=== PATIENT | female | born 1960 | race American Indian/Alaskan Native ===

== ENCOUNTER 2017-04-29 21:52 | Emergency (ER) | payer BC, OTHER ==
[~2017-04-29] VITALS: Ht 165.1 cm; Wt 101.3 kg
[~2017-04-29 21:52] MED LIST: ASMANEX220 MCG INH; ASPIR 8181 MG PO; ASPIR-LOW81 MG PO; ASPIRIN EC81 MG PO; BACTRIM DS TAB1 EACH PO; BENZONATATE100 MG PO; CALCIUM600 MG PO; COMBIVENT RESPIM4 GM IH; COZAAR50 MG PO; CRESTOR20 MG PO; D3 DOTS2000 UNIT PO; DULERA 100 MCG/13 GM INH; FLUCONAZOLE150 MG PO; HYDROCHLOROTHIA25 MG PO; LANTUS SOL100 UNIT/1 SUB-Q; LORATADINE10 MG PO; MACROBID 100 M100 MG PO; METFORMIN HCL1000 MG PO; MONTELUKAST SOD10 MG PO; NITROFURANTOIN100 M1 PO; NORCO 5-325 TA1 EACH PO
[2017-04-29] MEDS ORDERED: NORCO 5-325 TA1 EACH PO (22:45)
[2017-04-29] MEDS ORDERED: BACTRIM DS TAB1 EACH PO (22:45)
[2017-04-29] MEDS ORDERED: CEPHALEXIN500 MG PO (22:45)
== END 2017-04-29 23:07 | disposition home or self-care (01) ==
LOC: ED 21:52
PROC: 0W9F0ZZ Drainage of Abdominal Wall, Open Approach (ICD-10-PCS; principal; 2017-04-29)
DX: L02.211 Cutaneous abscess of abdominal wall (principal); E11.9 Type 2 diabetes mellitus without complications; I10 Essential (primary) hypertension; J45.909 Unspecified asthma, uncomplicated; F17.200 Nicotine dependence, unspecified, uncomplicated; Z79.899 Other long term (current) drug therapy; Z79.4 Long term (current) use of insulin; Z79.82 Long term (current) use of aspirin
CPT/HCPCS: 10060; 81001; 87070; 87077; 87088; 87186; 99283

== ENCOUNTER 2017-07-02 04:00 | Emergency (ER) | payer BC, OTHER ==
[~2017-07-02] VITALS: Ht 165.1 cm; Wt 87.3 kg
[~2017-07-02 04:00] MED LIST changes: +CEPHALEXIN500 MG PO
== END 2017-07-02 05:51 | disposition home or self-care (01) ==
LOC: ED 04:00
DX: R56.9 Unspecified convulsions (principal); E11.9 Type 2 diabetes mellitus without complications; J45.909 Unspecified asthma, uncomplicated; I10 Essential (primary) hypertension; F17.200 Nicotine dependence, unspecified, uncomplicated; Z79.899 Other long term (current) drug therapy; Z79.82 Long term (current) use of aspirin; Z79.4 Long term (current) use of insulin
CPT/HCPCS: 80053; 85025; 99283; G0480; J7030

== ENCOUNTER 2017-08-10 16:43 | Inpatient (IN) | payer BC, OTHER ==
[~2017-08-10] VITALS: Ht 165.1 cm; Wt 89.4 kg
[2017-08-10] MEDS ORDERED: ZITHROMAX250 MG PO (17:17)
[2017-08-10] MEDS ORDERED: BENZONATATE100 MG PO (17:29)
--- NOTE | 2017-08-10 21:50 | NUR ---
PT ADMITTED TO CCU ROOM 128 AT 2140. PT ARRIVED WITH STRETCHER WITH THE ADOPTION MANAGER. PT AT BEDSIDE. PT ABLE TO TRANSFER FROM STRECHER TO BED ON HER OWN. PT STATES "I FEEL MISERABLE" WHEN ASKED HOW SHE IS DOING. PT ARRIVED ON INSULIN GTT. WILL MONITOR HOURLY. MD IS PRESENT AT THIS TIME. WILL CONTINUE TO CLOSELY MONITOR.
--- NOTE | 2017-08-10 22:20 | NUR ---
PER MD VELAZQUEZ START PT ON LEVOPHED AND FOLLOW ORDER PARAMETERS FOR BP MANAGEMENT. PT DENIES DIZZINESS, BUT DOES NOT FEEL WELL IN GENERAL. STAETED GTT WILL TITRATE TO MAINTAIN MAP 60-65.
--- NOTE | 2017-08-10 22:50 | NUR ---
LEVOPHED GTT INCREASED TO 8MCG/MIN PER ORDER. WILL CONTINUE TO CLOSELY MONITOR AT THIS TIME.
--- NOTE | 2017-08-10 23:30 | NUR ---
PT RESTING IN BED WITH AT BEDSIDE. PT ADMITTED INTO COMPUTER AND ALL ORDERS FINISHED. YAO PLACED WITH 350MLS OF URINE RETURNED. WILL MONITOR HOURLY. ANTIBIOTICS GIVE, FLUIDS RUNNING PER ORDER. LEVOPHED TITRATED NEEDED PER ORDER TO MAINTAIN MAP 60-65. PT HAS CALL LIGHT AND CALLS APPROPRIATELY. WILL CONTINUE TO CLOSELY MONITOR.
--- NOTE | 2017-08-11 | NUR ---
MD CALLED WITH LAB RESULTS AND CHANGED PT ORDERS. PER MD FOLLOW NEW ORDERS PLACED. GIVE SUB Q INSULIN AND STOP INSULIN GTT. WILL GIVE POTASSIUM REPLACEMENT ORDERED. PT IS AGREEABLE TO PLAN. INCREASED LEVOPHED GTT TO 10 MCG/MIN PER ORDER. WILL CONTINUE TO CLOSELY MONITOR AT THIS TIME.
--- NOTE | 2017-08-11 00:15 | NUR ---
CHANGED LEVOPHED GTT TO 14MCG/MIN PER ORDERS TO MAINTAIN MAP >65. WILL CONTINUE TO CLOSELY MONITOR.
--- NOTE | 2017-08-11 01:00 | NUR ---
CHANGED LEVOPHED GTT TO 18MCG/MIN PER ORDERS. WILL CONTINUE TO CLOSELY MONITOR. PT DENIES ANY OTHER NEEDS AT THIS TIME. ICE CHIPS AT BEDSIDE. UPDATED PT ON CURRENT PLAN OF CARE. CALL LIGHT IN HAND. PT DAUGHTER AT BEDSIDE.
--- NOTE | 2017-08-11 02:15 | NUR ---
PT BS 330 GAVE 10 UNITS SUB-Q PER ORDER. LEVOPHED GTT REMAINS AT 18MCG/MIN PER ORDER PARAMETER. PT REQUESTED NEBULIZER. PT HAS EXP WHEEZE. PT COMPLAINING OF BACK DISCOMFORT WITH THE BED. REPOSITIONED PT AND GAVE PRN TYLENOL. WILL CONTINUE TO CLOSELY MONITOR. URINE OUTPUT REMAINS ABOVE GOAL AT THIS TIME. CALL LIGHT IN REACH. WILL CONTINUE TO CLOSELY MONITOR.
--- NOTE | 2017-08-11 03:45 | NUR ---
PT LEVOPHED GTT TURNED DOWN TO 14MCG/MIN PER TITRATION ORDERS. WILL CONTINUE TO CLOSELY MONITOR PATIENTS VITALS. URINARY OUTPUT IS ABOVE GOALS. PT DENIES ANY NEEDS AT THIS TIME. WILL CONTINUE TO ENCOURAGE REST AT THIS TIME.
--- NOTE | 2017-08-11 04:30 | NUR ---
PT LEVOPHED GTT TURNED DOWN TO 10MCG/MIN PER ORDERS. WILL CONTINUE TO MONITOR VITALS AND TITRATE THE ORDER SPECIFIES.
--- NOTE | 2017-08-11 06:00 | NUR ---
LEVOPHED GTT TURNED DOWN TO 8MCG/MIN AT THIS TIME PER ORDERS. WILL CONTINUE TO TRY AND TITRATE GTT. WILL CONTINUE TO CLOSELY MONITOR.
--- NOTE | 2017-08-11 06:57 | NUR ---
LABS TAKEN FROM CENTRAL LINE WITH NO ISSUES. CHANGED ALL HUBS AT THIS TIME. PT STATES "I STILL DONT FEEL THE BEST". GAVE PT MENU AT BEDSIDE. PT COMPLAINING OF BACK ACHE, PT STATES SHE SHE HAS CHRONIC BACK PAIN AT HOME. GAVE PRN TYLENOL. WILL CONTINUE TO CLOSELY MONITOR.
--- NOTE | 2017-08-11 08:10 | NUR ---
PT AWAKE AND ORIENTED, VITAL SIGNS COMPLETED. PT SITTING ON EDGE OF BED EATING BREAKFAST. PT ATE APPROX 20% OF BREAKFAST. ASSESSMENT COMPLETED, STATES BACK DISCOMFORT "10/03". PT NOW RESTING ON RIGHT SIDE WITH REU. LEVOPHED GTT DECREASED TO 7 MCG/MIN. BP 104/66 (76).
--- NOTE | 2017-08-11 09:28 | NUR ---
DR. VELAZQUEZ IN TO TALK WITH PT AND FAMILY MEMBER CONCERNING PLAN OF CARE FOR TODAY.
--- NOTE | 2017-08-11 10:08 | NUR ---
PT RESTING WITH EYES CLOSED, AWAKENS TO VOICE, STATES PAIN "2/10".
--- NOTE | 2017-08-11 10:42 | CONS ---
[facility] [address] [place] [address] Signed DATE OF CONSULTATION: 08/10/2017 HISTORY OF PRESENT ILLNESS: A 57-year-old heavyset female, diabetic, admitted to the emergency department with temperature 101.6, hypotension with blood pressure 91/33 and a white count of 18.3. Urinalysis showing evidence of urinary tract infection with numerous white blood cells, as well as RBC. She complains of vague abdominal pain, bowel sounds present, soft. No definite area of tenderness, no rebound. I was consulted for placement of a central line for fluid management as well as antibiotic IV infusion. ASSESSMENT AND PLAN: At the present time, I do not believe the patient has any surgical issue, abdominal chandler and I agree with imaging study in the form of CAT scan. The sonography study done earlier revealed no evidence of cholelithiasis, no evidence of any pericholecystic fluid suggestive of cholecystitis. I believe the patient has urosepsis and we will proceed with placement of central line via the right subclavian vein. The indication, risks involved, possible complication was discussed with the patient and the , who agreed with the plan. Margaux Arthur MD FSA/FLYL /[id number] Copies: ~ Electronically Signed By: MARGAUX ARTHUR MD 08/11/17 1042 PATIENT NAME: THERESA RICHEY CONSULTATION DATE OF : 62 REPORT #: [id number] PHYSICIAN: MARGAUX ARTHUR MD PCP: TONYA BLISS REPORT IS CONFIDENTIAL AND NOT TO BE RELEASED WITHOUT AUTHORIZATION
--- NOTE | 2017-08-11 10:42 | OR ---
[facility] [address] [address] Signed DATE OF OPERATION: 08/10/2017 SURGEON: Margaux Arthur MD PREOPERATIVE DIAGNOSIS: Septicemia secondary to urinary tract infection. PROCEDURE PERFORMED: Placement of a central line via the right subclavian vein. ANESTHESIA: 1% lidocaine. DESCRIPTION OF PROCEDURE: With the patient in Trendelenburg position with neck tilted to the left side, the right side of the chest, infraclavicular, supraclavicular, and right side of neck were prepped and draped in usual sterile fashion. Using 1% lidocaine, the skin below the midclavicular area was infiltrated as well as the subclavicular area. Using a central line needle, the subclavian vein was percutaneously punctured followed by insertion of guide wire, introducer, and a triple-lumen subclavian catheter. All the lumens flushed with normal saline easily with good return backflow. This was then anchored under skin using 3-0 silk. BioDisc was applied at the point of entry. Sterile dressing applied. The patient tolerated the procedure well.Portable chest x-ray revealed a catheter in the upper portion of the right atrium. Thi is a satisfactory placement. Margaux Arthur MD FSA/MODL /[id number] Copies: Electronically Signed By: MARGAUX ARTHUR MD 08/11/17 1042 PATIENT NAME: THERESA RICHEY OPERATIVE REPORT DATE OF : 62 REPORT #: [id number] PHYSICIAN: MARGAUX ARTHUR MD PCP: TONYA BLISS REPORT IS CONFIDENTIAL AND NOT TO BE RELEASED WITHOUT AUTHORIZATION [facility] [address] [place] [id number] Signed ~ Electronically Signed By: MARGAUX ARTHUR MD 08/11/17 1042 PATIENT NAME: THERESA RICHEY OPERATIVE REPORT DATE OF : 62 REPORT #: [id number] PHYSICIAN: MARGAUX ARTHUR MD PCP: TONYA BLISS REPORT IS CONFIDENTIAL AND NOT TO BE RELEASED WITHOUT AUTHORIZATION
[2017-08-11] MEDS ORDERED: VENTOLIN HFA18 GM INH (13:01)
[2017-08-11] MEDS ORDERED: MONTELUKAST SOD10 MG PO (13:02)
[2017-08-11] MEDS ORDERED: LOSARTAN POTAS100 MG PO (13:03)
[2017-08-11] MEDS ORDERED: FLONASE ALLERG9.9 ML NAS (13:08)
[2017-08-11] MEDS ORDERED: OMEPRAZOLE20 MG PO (13:10)
[2017-08-11] MEDS ORDERED: CLARITIN10 MG PO (13:11)
--- NOTE | 2017-08-11 13:40 | NUR ---
PT HAS LOTS OF ACTIVITY, VISITORS JUST LEFT. I SIMPLY LET HER KNOW I WAS HERE, AND WOULD FOLLOW UP LATER. SHE SEEMED TO APPRECIATE. I WILL CONTINUE TO FOLLOW NEEDED
--- NOTE | 2017-08-11 14:30 | NUR ---
PT SLEEPING ON RIGHT SIDE, REU. 02 AT 2L PER NC SATS 99%. I/O COMPLETED.
--- NOTE | 2017-08-11 19:00 | NUR ---
RECEIVED REPORT FROM RN. PATIENT IS RESTING IN BED WITH EYES CLOSED, BREATHING IS EVEN AND UNLABORED. CALL LIGHT WITHIN REACH, AT BEDSIDE.
--- NOTE | 2017-08-11 19:35 | EKG ---
[facility] [address] [facility] [place], [place] [address] Signed Sinus tachycardia Right axis deviation Abnormal ECG No previous ECGs available Confirmed by PRESTON VELAZQUEZ MD ([id number]) on 08/11/2017 7:35:33 PM Electronically Signed By: PRESTON VELAZQUEZ MD 08/11/17 [id number] PATIENT NAME: THERESA RICHEY Electrocardiogram DATE OF : 62 PHYSICIAN: PRESTON VELAZQUEZ MD REPORT #: [id number] REPORT IS CONFIDENTIAL AND NOT TO BE RELEASED WITHOUT AUTHORIZATION
--- NOTE | 2017-08-11 19:45 | NUR ---
TITRATED LEVOPHED GTT TO 2MCG/MIN PER ORDER AT THIS TIME. WILL CONTINUE TO TITRATE OFF GTT PT VITALS CAN TOLERATE IT.
--- NOTE | 2017-08-11 21:00 | NUR ---
PATIENT RESTING IN BED, BREATHING IS EVEN AND UNLABORED. ASSESSMENT DONE AND MEDICATIONS GIVEN. PATIENT STATES "I AM JUST FEELING TIRED AND WANT TO GET SOME SLEEP." CALL LIGHT WITHIN REACH, AT BEDSIDE.
--- NOTE | 2017-08-11 21:20 | NUR ---
LEVOPHED GTT PUT ON STANDBY WITH BP OF 125/67, MAP OF 78, HEART RATE 94. PATIENT IS RESTING COMFORTABLY IN BED, BREATHING IS EVEN AND UNLABORED. O2 SATURATION IS 98% ON 1L O2 VIA NC. CALL LIGHT WITHIN REACH, FAMILY AT BEDSIDE.
--- NOTE | 2017-08-11 21:30 | NUR ---
TITRATED O2 TO ROOM AIR, O2 SATURATION IS 92%. PATIENT REPORTS 9/10 PAIN IN HEAD AND LOWER BACK, PRN OXYCODONE GIVEN. PATIENT DENIES FUTHER NEEDS. RESTING COMFOTABLY IN BED, BREATHING IS EVEN AND UNLABORED. CALL LIGHT WITHIN REACH, AT BEDSIDE.
--- NOTE | 2017-08-11 23:09 | NUR ---
PATIENT RESTING COMFORTABLY IN BED, BREATHING IS EVEN AND UNLABORED. O2 SATURATION IS 93% ON ROOM AIR. BP OF 102/53 WITH MAP OF 65 NOTED WHILE PATIENT CURRRENTLY OFF LEVOPHED GTT. YAO DRAINING WELL, URINE OUTPUT QS. CALL LIGHT WITHIN REACH.
--- NOTE | 2017-08-12 01:17 | NUR ---
PATIENT RESTING COMFORTABLY IN BED, BREATHING IS EVEN AND UNLABORED, O2 SATURATION IS 93% ON ROOM AIR. FLACC SCORE OF 0. CALL LIGHT WITHIN REACH.
--- NOTE | 2017-08-12 02:15 | NUR ---
PATIENT REPORTS 8/10 PAIN IN LOWER BACK, PRN OXYCODONE GIVEN. PATIENT DENIES FURTHER NEEDS. ASSESSMENT DONE. BREATHING IS EVEN AND UNLABORED. CALL LIGHT WITHTIN REACH.
--- NOTE | 2017-08-12 03:26 | NUR ---
PATIENT RESTING COMFORTABLY IN BED, BREATHING IS EVEN AND UNLABORED. O2 SATURATION IS 94% ON 1L O2 VIA NC. FLACC SCORE OF 0. CALL LIGHT WITHIN REACH.
--- NOTE | 2017-08-12 04:30 | NUR ---
PATIENT RESTING IN BED, BREATHING IS EVEN AND UNLABORED. O2 SATURATION IS 96% ON 1L O2 VIA NC, FLACC SCORE OF 0. CALL LIGHT WITHIN REACH.
--- NOTE | 2017-08-12 06:00 | NUR ---
PATIENT RESTING IN BED, BREATHING IS EVEN AND UNLABORED. O2 SATURATION IS 94% ON 1L O2 VIA NC. REPORTS 8/10 PAIN IN LOWER BACK, PRN OXYCODONE GIVEN. PATIENT DENIES FURTHER NEEDS. ASSESSMENT DONE. PATIENT STATES "I AM STARTING TO FEEL BETTER." CALL LIGHT WITHIN REACH.
--- NOTE | 2017-08-12 08:20 | NUR ---
ASSESSMENT COMPLETED, PT UP TO MANDO CHAIR WITH MINIMAL ASSIST. 02 OFF AND SATS 91% ON RA. C/O OF HEADACHE WHEN COUGHING. R.T. HERE TO GIVE MAGNOLIA TX.
--- NOTE | 2017-08-12 10:45 | NUR ---
PT ATE APPROX 10% OF BREAKFAST. DR. VELAZQUEZ IN TO ASSESS PT. FAMILY MEMBERS IN ROOM.
--- NOTE | 2017-08-12 12:13 | NUR ---
ASSESSMENT COMPLETED. PT REMAINS UP IN MANDO CHAIR, RESTING AT THIS TIME. C/O HEADACHE, MEDICATED WITH OXYCODONE 5MG PO AND FLONASE GIVEN.
--- NOTE | 2017-08-12 12:50 | NUR ---
PT SITTING UP IN CHAIR-ALERT, ORIENTED AND VISITORS IN ROOM. SHE WAS SO MUCH MORE ALERT AND FEELING WELL ENOUGH TO LAUGH AND JOKE TODAY. EXTENDED A BLESSING, WILL FOLLOW NEEDED
--- NOTE | 2017-08-12 14:30 | NUR ---
PT RESTING IN BED, YAO CATH DC'C AND EMPTIED OF 625 MLS ORANGE URINE. PT C/O HEADACHE SUDAFED 60MG PO GIVEN.
--- NOTE | 2017-08-12 14:46 | NUR ---
PT SLEEPING AT THIS TIME WITH REU AT 18 PER MIN.
--- NOTE | 2017-08-12 18:13 | NUR ---
PT UP TO BSC VOIDING 625 MLS DARK ORANGE URINE. RETURNED TO BED, ASSESSMENT COMPLETED, PT C/O HEADACHE "10/03", MEDICATED WITH OXYCODONE 5MG PO. RESTING IN BED EATING DINNER.
--- NOTE | 2017-08-12 18:29 | NUR ---
PT ATE APPROX 10% OF DINNER. RESTING IN BED WITH EYES CLOSED.
--- NOTE | 2017-08-12 20:51 | NUR ---
PATIENT RESTING IN BED, BREATHING IS EVEN AND UNLABORED. O2 SATURATION IS 95% ON ROOM AIR, HR IS 100. REPORS 8/10 PAIN IN HEAD AND STATES "IT IS RIGHT IN THE FRONT OF MY HEAD, LIKE A SINUS HEADACHE." PRN TYLENOL AND PSEUDOPHED GIVEN. DENIES FURTHER NEEDS. ASSESSMENT DONE. CALL LIGHT WITHIN REACH, AT BEDSIDE.
--- NOTE | 2017-08-12 22:15 | NUR ---
PATIENT RESTING IN BED, BREATHING IS EVEN AND UNLABORED. CONTINUES TO REPORTS 8/10 PAIN IN HEAD DUE TO SINUS PAIN, PRN OXYCODONE GIVEN. PATIENT ASSISTED TO BEDSIDE COMODE, GAIT STEADY, SBA. NOW RESTING IN BED AGAIN. DENIES FURTHE NEEDS. CALL LIGHT WITHIN REACH.
--- NOTE | 2017-08-13 00:30 | NUR ---
PATIENT RESTING COMFORTABLY IN BED, BREATHING IS EVEN AND UNLABORED. FLACC SCORE OF 0. CALL LIGHT WITHIN REACH.
--- NOTE | 2017-08-13 02:00 | NUR ---
PATIENT REPORTS 8/10 PAIN, PRN TYLENOL, OXYCODONE, AND PSEUDOPHED GIVEN. PATIENT DENIES FURTHER NEEDS. CALL LIGHT WITHIN REACH.
--- NOTE | 2017-08-13 04:00 | NUR ---
PATIENT RESTING IN BED, BREATHING IS EVEN AND UNLABORED. CALL LIGHT WITHIN REACH.
--- NOTE | 2017-08-13 06:22 | NUR ---
MIDLINE INSERTION NOTE: ASKED BY DR. VELAZQUEZ TO EVALUATE PATIENT FOR POTENTIAL MIDLINE PLACEMENT FOR 2 WEEKS OF IV ANTIBIOTICS INDICATION. PT HAS A CENTRAL LINE IN RIGHT SUBCLAVIAN THAT IS DUE TO BE D/C ONCE MIDLINE IS ESTABLISHED. AFTER REVIEWING THE CHART AND INTERVIEWING THE PATIENT, NO ABSOLUTE CONTRAINDICATIONS WERE IDENTIFIED. PATIENT WAS ABLE TO GIVE VERBAL CONSENT FOR MIDLINE INSERTION. PATIENT'S RIGHT ARM WAS EVALUTED FIRST USING THE SITE RITE U/S MACHINE. PT'S BASILIC VEIN WAS EASILY IDENTIFIED AND FOUND TO BE GREATER THAN 8 FR BY SITE RITE U/S. PT'S BRACHIAL AND CEPHALIC WERE ALSO IDENTIFIED, BUT THE BASILIC WAS THE BEST CHOICE. CDC RECOMMENDED STERILE TECHNIQUE WAS THEN UTILIZED TO PREP THE PATIENT'S RIGHT ARM. IV ACCESS WAS OBTAINED AND BRISK, NON PULSATILE, DARK BLOOD WAS RETURNED. THE GUIDEWIRE ADVANCED EASILY INTO THE VEIN, DID THE INTRODUCER AND MIDLINE CATHETER. CATHETER WAS TRIMMED TO 18 CM LENGTH AFTER MEASURING PT'S ARM. ANTIMICROBIAL PATCH AND SECURMENT DEVICE WERE APPLIED TO SITE AND STERILE DRESSING WAS PLACED. PATIENT TOLERATED THIS PROCEDURE VERY WELL. PT EDUCATED ON NECESSARY EDUCATION ABOUT GOING HOME WITH THIS MIDLINE POTENTIALLY, AND ENCOURAGED TO KEEP ASKING QUESTIONS REGARDING THIS MIDLINE CATHETER. EDUCATION MATERIAL LEFT AT BEDSIDE. REPORT GIVEN TO EMMA YEE CARING FOR THIS PATIENT.
--- NOTE | 2017-08-13 07:01 | NUR ---
PATIENT RESTING IN BED, BREATHING IS EVEN AND UNLABORED. REPORTS 7/10 PAIN IN HEAD, PN TYLENOL AND OXYCODONE GIVEN. ASSISTED TO BEDSIDE COMODE. NOW RESTING IN BED. NO NEEDS AT THIS TIME. CALL LIGHT WITHIN REACH.
--- NOTE | 2017-08-13 07:30 | NUR ---
BEDSIDE REPORT RECIEVED.
--- NOTE | 2017-08-13 08:00 | NUR ---
RESTFUL, ACCUCHECK-155. DR VELAZQUEZ AWARE. ASSESSMENT DONE. HAS LOOSE COUGH. STATES HEAD HURTS WHEN COUGHING. DENEIS FUTHER PAIN. TALKED WITH PATIENT ABOUT PLAN OF CARE, IS UNDERSTANDING.
--- NOTE | 2017-08-13 08:40 | NUR ---
ROUTINE LANTUS 70 UNITS GIVEN WELL 2 UNITS HUMALOG.
--- NOTE | 2017-08-13 09:40 | NUR ---
RESTFUL. MONITOR DC'D. WILL BE TRANSFERRED TO MEDICAL FLOOR TODAY.
--- NOTE | 2017-08-13 10:35 | NUR ---
TO SHOWER VIA SHOWER CHAIR.
--- NOTE | 2017-08-13 10:45 | NUR ---
TOLERATED SHOWER WELL. AMBULATED FROM SHOWER TO ROOM 128, TOLERATED AMBULATION WELL. NOW SITTING IN CHAIR.
--- NOTE | 2017-08-13 11:30 | NUR ---
OXYCODONE 5 MG AND TYLENOL 500 MG PO GIVEN.
--- NOTE | 2017-08-13 11:50 | NUR ---
BACK TO BED. MOVING WELL.
--- NOTE | 2017-08-13 13:34 | NUR ---
REPORT TO MED-SURG. PATIENT SITTING UP IN BED TO EAT LUNCH.
--- NOTE | 2017-08-13 14:00 | NUR ---
TO MED-SURG VIA BED.
--- NOTE | 2017-08-13 14:07 | NUR ---
PT TRANSFERRED FROM ROOM 128 ON CCU UNIT TO ROOM 123 ON MED SURG UNIT AT 1400. ROOM AIR. VSS. SALINE LOCKED.
--- NOTE | 2017-08-13 14:30 | NUR ---
PT RESTING IN BED, ALERT AND ORIENTED. DENIES NEEDS OR CONCERNS AT THIS TIME, REQUESTING TO REST AT THIS TIME. ASSESSMENT COMPLETED. CALL BUTTON WITHIN REACH.
--- NOTE | 2017-08-13 14:36 | NUR ---
PT ALERT, ORIENTED AND FEELING MUCH BETTER. SHE DID SAY THAT SHE IS PLANNING ON MOVING TO [place]. ONE STEP CLOSER TO DC. SHE HAD A BIG SMILE, AND HAD A PLEASANT VISIT. EXTENDED A BLESSING, WILL FOLLOW NEEDED
--- NOTE | 2017-08-13 15:05 | NUR ---
patient resting in bed. case management in room.
--- NOTE | 2017-08-13 16:20 | NUR ---
PT REPORTING 7/10 HEADACHE PAIN, MEDICATED WITH SUDAFED AND PRN OXY.
--- NOTE | 2017-08-13 17:41 | NUR ---
PT SBA TO RESTROOM, VOIDED WITHOUT DIFFICULTY. PT AMB BACK TO BED. STATES SHE IS NOT HUNGRY RIGHT NOW AND WILL WAIT TO ORDER DINNER. CALL LIGHT WITHIN REACH, FAMILY AT BEDSIDE.
--- NOTE | 2017-08-13 18:41 | NUR ---
PT IN BED WITH EYES CLOSED, CONT TO C/O OF HEADACHE PAIN. MEDICATED WITH TYLENOL. CALL LIGHT WITHIN REACH.
--- NOTE | 2017-08-13 19:43 | NUR ---
patient resting in bed. family members in room. vitals and i&os done. garbage emptied. call light within reach. no other needs at this time.
--- NOTE | 2017-08-13 19:56 | NUR ---
URSULA HARDEN REPORT FROM DAY SHIFT RN. PATIENT IS RESTING IN BED WITH EYES CLOSED. FAMILY IS AT THE BEDSIDE. NO NEEDS NOTED BY FAMILY. CALL LIGHT IN REACH.
--- NOTE | 2017-08-13 21:05 | NUR ---
PATIENT ASSESMENT COMPLETED. PATIENTS EVENING MEDICATIONS GIVEN PER ORDER. PATIENT RATES PAIN AT A 7/10 IN HER SINUSES. PATIENT GIVEN PRN PAIN MEDICAITON PER ORDER. PATIENT COMPLETED X3 LAPS IN THE HALLWAY. PATIENT TOLERATED AMBULATION WELL. PATIENT IS STEADY ON HER FEET. PATIENT HAS FAMILY OIN TH ROOM. PATIENTS BLOOD SUGAR WAS WNL, NO SS REQUIRED. NO FURTHER NEEDS NOTED. CALL LIGHT IN REACH.
--- NOTE | 2017-08-13 22:10 | NUR ---
PATIENT GIVEN PRN TYLENOL AND PSEUDOPHER FOR SINUS HEADACHE THAT IS 7/10. NO FURTHER NEEDS NOTED AT THIS TIME. PATIENTS LIGHTS TURNED OFF PER REQUEST. ALL FAMILY HAS LEFT FOR THE EVENING. CALL LIGHT IN REACH.
--- NOTE | 2017-08-14 02:19 | NUR ---
PATIENTS 0200 MEDICATIONS GIVEN PER ORDER. PATIENTS BLOOD SUGAR IS WNL, NO SS GIVEN. PATIENT RATES SINUS PAIN AT A 6/10. PRN PAIN MEDICATION GIVEN PER ORDER. PATIENT AMBULATED TO THE RESTROOM. PATIENT WAS ABLE TO VOID. PATIENT IS NOW BACK IN BED RESTING. NO FURTHER NEEDS NOTED. CALL LIGHT IN REACH.
--- NOTE | 2017-08-14 04:11 | NUR ---
PATIENT IS RESTING IN BED ON HER LEFT SIDE. BREATHING IS EVEN AND UNLABORED, RR 17. CALL LIGHT IN [facility].
--- NOTE | 2017-08-14 04:51 | NUR ---
PATIENT RESTED WELL THROUGHOUT THE SHIFT. PATIENT IS ON AN ADA DIET, AND IS TOLRATING IT WELL. NO COMPLAINTS OF NAUSEA. PATIENT RECEIVED PRN PAIN MEDICATION FOR SINUS PAIN. PATIENT ALSO RECEIVED PRN PSEUDOPHEDRINE FOR SINUS'S. PATIENT HAS A MIDLINE IN HER RIGHT ARM THAT FLUSHES WELL. PATIENT IS INDEPENDENT IN THE ROOM AND IS STEADY ON HER FEET. PATIENT USES CALL LIGHT APPROPRIATELY.
--- NOTE | 2017-08-14 05:52 | NUR ---
PATIENT ASSISTED TO THE RESTROOM A SBA. PATIENT IS STEAD ON HER FEET. PATIENT WAS ABLE TO VOID. PATIENTS VITALS TAKEN AND RECORDED. PATIENT GIVEN PRN PSEUDOPHED AND PRN PAIN MEDICATION. PATIENTS INTAKE AND OUPUT RECORDED. PATIENT DENIES ANY FURTHER NEEDS. CALL LIGHT IN REACH.
--- NOTE | 2017-08-14 08:02 | NUR ---
MORNING ASSESSMENT AND MEDICATION DUE. THIS RN TO BEDSIDE. PT UP AT EDGE OF BED. PT REPORTS 6/10 "HEADACHE" PAIN AND REQUESTS PAIN MEDICATION. PT UP TO RESTROOM INDEPENDANTLY. PT STEADY ON FEET. OCCATIONAL COUGH NOTED. PT BLOWING NOSE FREQUENTLY. ASSESSMENT DONE. MEDICATION GIVEN (SEE MAR). MID LINE ASSESSED, WNL. PT EATING BREAKFAST. AT BEDSIDE. PT STATES SHE HAS NO ADDITIONAL REQUESTS OR COMPLAINTS AT THIS TIME. CALL LIGHT WITHIN REACH.
--- NOTE | 2017-08-14 09:12 | NUR ---
THIS RN TO PTS ROOM TO REASSESS PAIN. PT REPORTS 7/10 PAIN THAT IS "STEADILY GETTING BETTER." PT EDUCATION REGARDING PAIN SCALE DONE. COOL CLOTH PROVIDED ACCROSS PT FORHEAD. PT STATES "THAT FEELS MUCH BETTER." PT STATES SHE HAS NO ADDITIONAL REQUESTS OR COMPLAINTS AT THIS TIME. CALL LIGHT AND BELONGINGS WITHIN REACH.
--- NOTE | 2017-08-14 10:45 | NUR ---
pt asked to shower, midline was wrapped and shower set up. pt was able to shower on her own, I have changed her bed linens.
--- NOTE | 2017-08-14 11:00 | NUR ---
PT CALL LIGHT ON. THIS RN TO ROOM. PT FINISHED WITH SHOWER. MID LINE COVER REMOVED. PT SETTELED INTO CHAIR. SOCKS PROVIDED. BATHROOM DRIED. PT STATES SHE HAS NO ADDITIONAL REQUESTS OR COMPLAINTS. NOW RATING HEADACHE PAIN AT 5/10. BED RAILS CALL LIGHT WITHIN REACH.
--- NOTE | 2017-08-14 12:19 | NUR ---
MEDICATION AND FOCUSED ASSESSMENT DUE. THIS RN TO BEDSIDE. PT RESTING WITH EYES CLOSED, RR - 14BPM. PT AWAKENS TO VOICE. ABX STARTED. ASSESSMENT DONE. RT TO BEDSIDE FOR BREATHING TX. PT STATES SHE IS "FEELING PRETTY GOOD." BED RAILS UP. CALL LIGHT WITHIN REACH.
--- NOTE | 2017-08-14 14:08 | NUR ---
pt is resting in bed with call light in reach. pt is running a low fever, will notify her nurse. pt did not need anything elese at the moment
--- NOTE | 2017-08-14 15:21 | NUR ---
THIS RN TO ROOM TO CHECK ON PT. PT RESTING WITH EYES CLOSED, RR = 16 BPM. BED RAILS UP. CALL LIGHT WITHIN REACH.
--- NOTE | 2017-08-14 17:24 | NUR ---
EVENING ASSESSMENT AND MEDICATIONS DUE. THIS RN TO BEDSIDE. PT REPORTS A "REALLY BAD HEADACHE." PT STATES "OVERALL I FEEL BETTER, ITS JUST THE HEADACHE THAT IS GETTING ME DOWN." TYLENOL AND PSUDAPHED GIVEN. COLD CLOTH TO FORHEAD. PT STATES THIS HELPS. BREATHING TREAMENT DONE AND OFF OF PTS FACE BUT STILL RUNNING. AIR TURNED OFF BY THIS RN. THIS RN NOTICES THAT IV LINE HAS BEEN DISCONNECTED FROM PTS ARM. NO ALCOHOL CAP APPLIED. THIS RN CANNOT FIND RECORD THAT MID LINE WAS HEPARIN LOCKED PER PROTOCOL. LINE HEPARIN LOCKED, ALCOHOL CAP APPLIED. ASSESSMENT DONE. CRACKELS NOTED IN LOWER LOBES AND RIGHT UPPER LOBE OF LUNGS. PT REPORTS SOB WITH "MOVING AROUND." AT BEDSIDE. BED RAILSUP. PT REPORTS HAVING USED THE RESTROOM. LOOSE BROWN BM NOTED BY THIS RN. DINNER ORDER PLACED FOR PT. PT STATES SHE HAS NO ADDITIONAL REQUESTS OR COMPLAINTS AT THIS TIME.
--- NOTE | 2017-08-14 18:03 | NUR ---
pt just ordered dinner so she has not eaten yet. pt is resting in bed with call light in reach. pt's temp has gone up will notify nurse
--- NOTE | 2017-08-14 18:15 | NUR ---
CALLED REGARDING TEMPERATURE OF 100.3. STATES NO ACTION NEEDED AT THIS TIME. CONTINUE TO MONITOR.
--- NOTE | 2017-08-14 18:16 | NUR ---
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 BLOOD SUGARS WNL TODAY. PT REPORTING ONGOING HEADACHE FROM 6-10/03 PAIN. PRN PAIN MEDICATIONS, TYLENOL AND PSUEDOEPHEDRIN GIVEN. TEMPERATURE 100.3 AT 1800 VITALS. AWARE. ADA DIET. LINE, HEPARIN LOCKED. PT USING CALL LIGHT APPROPRIATLY.
--- NOTE | 2017-08-14 18:27 | NUR ---
I waited 15 minutes and retook pt's temp, per nurse. temp and gone down to 98.9 and was charted.
--- NOTE | 2017-08-14 22:05 | NUR ---
Coop with assessment. temp 99.4, received tylenol 500mg po , and oxycodone 5mg po h/c, ice to back and frontal head. applied, no c/o n/v. Cntral line intact
--- NOTE | 2017-08-15 00:08 | NUR ---
RESTING, NO FURTHER C/O PAIN, ICE TO BACK OF NECK,
--- NOTE | 2017-08-15 03:09 | NUR ---
resting, no s/sx distress, no c/o apin or n/v
--- NOTE | 2017-08-15 05:07 | NUR ---
Up to brp, voided, had formed bm. temp 98.9. C/o H/a, ice pack to back and frontal head area given, medicated with Tylenol 500mg po and Oxycodone 5mg po. No other c/o. Worked on IS 10X, up to 1999.
--- NOTE | 2017-08-15 05:51 | NUR ---
Pt currently resting, Had a temp of 99.4 at begining of shift, 98.9 at this time. Continues to c/o frontal h/a 09/02. Ice to back of neck and frontal head. Medicated with Tylenol 500mg po X2 and Oxycodone 5mg po. with fair relief. No c/o hypoglycemia, no other requests or c/o. Tolerating fluids well. Gets up to brp w/o assist. Midline IV/Hep lock site R arm, intact. Pt worked on IS, up to 2000mg
--- NOTE | 2017-08-15 07:47 | NUR ---
PATIENT RESTING IN BED, RESPIRATORY THERAPY AND RN IN ROOM. PATIENT RESTING IN BED. NO OTHER NEEDS AT THIS TIME.
--- NOTE | 2017-08-15 08:00 | NUR ---
RECEIVED REPORT AT 0700, FOUND PT IN BED SLEEPING. NO CONCERNS AT THAT TIME.
--- NOTE | 2017-08-15 09:42 | NUR ---
PATIENT SITTING UP IN BEDSIDE RECLINER, CALL LIGHT IN REACH. NO OTHER NEEDS AT THIS TIME.
--- NOTE | 2017-08-15 10:00 | NUR ---
PT IN ROOM. NO NEEDS AT THIS TIME.
--- NOTE | 2017-08-15 12:00 | NUR ---
BS WAS WITHIN NORMAL RANGE AND THEREFORE DID NOT NEED COVERAGE. PT ORDERED SOME LUNCH. IV ABX IS RUNNING. PT TO D/C AFTER ABX ARE DONE. PT HAD PAIN 7/10, PRN OXY 5MG AND TYLELOL PRN WAS GIVEN. WILL CONTINUE TO MONITOR.
--- NOTE | 2017-08-15 12:42 | NUR ---
PATIENT RESTING IN BEDSIDE RECLINER, CALL LIGHT IN REACH. NO OTHER NEEDS AT THIS TIME.
[2017-08-15] MEDS ORDERED: INVANZ1 GM IV (13:21)
--- NOTE | 2017-08-15 13:35 | NUR ---
PATIENT SITTING UP IN BED, WAITING FOR DISCHARGE INSTRUCTIONS. CALL LIGHT IN REACH. FAMILY IN ROOM. NO OTHER NEEDS AT THIS TIME.
== END 2017-08-15 14:00 | disposition home or self-care (01) | DRG 871 ==
LOC: ED 16:43 → CCU 20:27 → MS 08-13 14:06
PROVIDERS: ADMIT Internal Medicine
PROC: 3E033XZ Introduction of Vasopressor into Peripheral Vein, Percutaneous Approach (ICD-10-PCS; principal; 2017-08-10)
PROC: 02H633Z Insertion of Infusion Device into Right Atrium, Percutaneous Approach (ICD-10-PCS; 2017-08-10)
DX: A41.51 Sepsis due to Escherichia coli [E. coli] (principal); R65.21 Severe sepsis with septic shock; E11.10 Type 2 diabetes mellitus with ketoacidosis without coma; N10 Acute pyelonephritis; N17.9 Acute kidney failure, unspecified; Z16.12 Extended spectrum beta lactamase (ESBL) resistance; F17.210 Nicotine dependence, cigarettes, uncomplicated; I10 Essential (primary) hypertension; J45.20 Mild intermittent asthma, uncomplicated; D69.59 Other secondary thrombocytopenia; E87.6 Hypokalemia; R51 Headache; N63.0 Unspecified lump in unspecified breast; Z79.82 Long term (current) use of aspirin; Z79.4 Long term (current) use of insulin; Z79.891 Long term (current) use of opiate analgesic; Z79.51 Long term (current) use of inhaled steroids; Z79.899 Other long term (current) drug therapy
CPT/HCPCS: 36569; 71045; 74176; 76705; 80048; 80053; 81001; 82010; 82570; 82800; 82803; 83036; 83605; 83690; 83735; 83930; 84300; 84484; 84540; 85025; 87040; 87077; 87088; 87186; 93005; 93010; 94640; 96361; 96374; 96375; 99285; J0696; J1335; J1650; J1815; J2405; J2543; J3475; J3480; J7030; J7120

== ENCOUNTER 2018-03-11 22:55 | Emergency (ER) | payer BC, OTHER ==
[~2018-03-11] VITALS: Ht 165.1 cm; Wt 91.6 kg
[~2018-03-11 22:55] MED LIST changes: +CLARITIN10 MG PO; +FLONASE ALLERG9.9 ML NAS; +INVANZ1 GM IV; +LOSARTAN POTAS100 MG PO; +OMEPRAZOLE20 MG PO; +VENTOLIN HFA18 GM INH; +ZITHROMAX250 MG PO
== END 2018-03-12 02:20 | disposition home or self-care (01) ==
LOC: ED 22:55
DX: R25.2 Cramp and spasm (principal); E11.9 Type 2 diabetes mellitus without complications; J45.909 Unspecified asthma, uncomplicated; F17.200 Nicotine dependence, unspecified, uncomplicated; Z79.4 Long term (current) use of insulin; Z79.82 Long term (current) use of aspirin
CPT/HCPCS: 80053; 83735; 85025; 96360; 99283-25; J7030

== ENCOUNTER 2018-06-27 09:38 | Emergency (ER) | payer BC, OTHER ==
[~2018-06-27] VITALS: Ht 165.1 cm; Wt 89.8 kg
[2018-06-27] MEDS ORDERED: NORCO 5-325 TA1 EACH PO (10:57)
== END 2018-06-27 11:55 | disposition home or self-care (01) ==
LOC: ED 09:38
PROC: 2W3DX1Z Immobilization of Left Lower Arm using Splint (ICD-10-PCS; principal; 2018-06-27)
DX: S52.572A Other intraarticular fracture of lower end of left radius, initial encounter for closed fracture (principal); S52.612A Displaced fracture of left ulna styloid process, initial encounter for closed fracture; E11.9 Type 2 diabetes mellitus without complications; J45.909 Unspecified asthma, uncomplicated; I10 Essential (primary) hypertension; F17.200 Nicotine dependence, unspecified, uncomplicated; Z90.710 Acquired absence of both cervix and uterus; Z79.4 Long term (current) use of insulin; Z79.82 Long term (current) use of aspirin; W10.9XXA Fall (on) (from) unspecified stairs and steps, initial encounter
CPT/HCPCS: 29125; 73110; 99283-25

== ENCOUNTER 2021-06-17 14:25 | Emergency (ER) | payer BC, OTHER ==
[~2021-06-17] VITALS: Ht 165.1 cm; Wt 93.0 kg
[~2021-06-17 14:25] MED LIST changes: +KEFLEX500 MG PO; +LOSARTAN POTASS25 MG PO; +ROPINIROLE HCL0.5 MG PO; +TRULICITY1.5 MG/0.5 SUB-Q
[2021-06-17] MEDS ORDERED: VOLTAREN ARTHRI20 GM TOP (19:16)
== END 2021-06-17 19:45 | disposition home or self-care (01) ==
LOC: ED 14:25
DX: R60.0 Localized edema (principal); E11.9 Type 2 diabetes mellitus without complications; J45.909 Unspecified asthma, uncomplicated; I10 Essential (primary) hypertension; M19.90 Unspecified osteoarthritis, unspecified site; F17.200 Nicotine dependence, unspecified, uncomplicated; Z79.899 Other long term (current) drug therapy; Z79.82 Long term (current) use of aspirin; Z79.84 Long term (current) use of oral hypoglycemic drugs
CPT/HCPCS: 36415; 80053; 85025; 85379; 99283

== ENCOUNTER 2022-10-24 12:52 | Day surgery (SDC) | payer BC, OTHER ==
[~2022-10-24] VITALS: Ht 165.1 cm; Wt 95.5 kg
[~2022-10-24 12:52] MED LIST changes: +VOLTAREN ARTHRI20 GM TOP
[2022-10-24 13:11] VITALS: BP 136/65
[2022-10-24] MEDS ORDERED: OZEMPIC2 MG/0.75 SUB-Q (13:17)
--- NOTE | 2022-10-24 15:34 | NUR ---
10/24/22 1534 Deanna Huertas 1525- PT ARRIVES TO PACU, LEFT LATERAL POSITION. LR INFUSING TO RIGHT HAND IV, O2 AT 2L PER NC. PT BREATHING EVEN AND NON LABORED AT THIS TIME. PT IS NON REACTIVE TO STIMULI. ABD SOFT, NON DISTENDED. WILL CONTINUE TO MONITOR. 1532- PT CONTINUES TO REST. INTERMITTENT SNORING. MOVED TO ROOM AIR AT THIS TIME. WILL CONTINUE TO MONITOR.
[2022-10-24 16:22] VITALS: BP 117/69
--- NOTE | 2022-10-27 14:35 | OR ---
[facility] [address] [place], [place] [address] Signed DATE OF OPERATION: 10/24/2022 SURGEON: Ayesha Stubbs MD PREOPERATIVE DIAGNOSIS: 1. Colon screening. 2. History of colonoscopy, unknown findings. POSTOPERATIVE DIAGNOSES: 1. Sigmoid diverticulosis, extensive. 2. Endomark tattoo dye right ascending colon without associated recurrent polyp. 3. Small polyp of cecum (excised). PROCEDURE: Total colonoscopy to cecum with cold morcellation polypectomy x1. ANESTHESIA: Intravenous sedation, fentanyl 150 mcg and Versed 7 mg. INDICATION: This 62-year-old [place] woman is a patient of Barb Isidro of [facility]. She underwent colonoscopy greater than 15 years ago at [facility] (the old [facility]). She is uncertain what the findings at colonoscopy were. We do not have medical records to verify either way. She is symptom-free at this time and is admitted to undergo screening colonoscopy. She understands the risk of bleeding, infection, and perforation. FINDINGS: The prep was good. Complete colonoscopy was undertaken to the cecum without question. Full intubation of the cecum was accomplished. The appendiceal orifice and the terminal ileum was normal. There was a small polyp of the cecum, which was excised with cold morcellation technique. Notable for the remaining colon was left-sided and sigmoid diverticulosis. There were no other findings of concern. DESCRIPTION OF PROCEDURE: The patient was brought to the endoscopy suite and placed in lateral decubitus position given intravenous sedation to the point of slurred speech and nystagmus. Digital rectal examination was normal. An Olympus video colonoscope was passed in the rectum and manipulated throughout the Electronically Signed By: AYESHA STUBBS MD 10/27/22 1435 PATIENT NAME: THERESA RICHEY OPERATIVE REPORT DATE OF : 62 REPORT #: [id number] PHYSICIAN: AYESHA STUBBS MD PCP: BARB ISIDRO REPORT IS CONFIDENTIAL AND NOT TO BE RELEASED WITHOUT AUTHORIZATION [facility] [address] [place], [place] [address] Signed colon noting numerous diverticula of the sigmoid and left colon. Scope was ultimately passed to the cecum. Ileocecal valve and appendiceal orifice were normal. Irrigation and narrow band imaging confirmed the presence of a small polyp of the cecum. This was excised with cold morcellation technique without problem and completely excised indeed. The scope was then withdrawn, examination throughout showed no sign of abnormality other than diverticulosis. Retroflexed view in the rectum was normal. Scope was removed and the patient was taken to the recovery room in good condition. CONCLUDING DIAGNOSES: 1. Polyp of cecum x1. 2. Diverticulosis. PLAN: Recommend repeat colonoscopy in three years, sooner if clinically indicated. She will return to the ongoing care of BRANNON Smith. MD STEVE Ferrer/JAN /[id number] cc: Barb Isidro Copies: BARB ISIDRO ~ Electronically Signed By: AYESHA STUBBS MD 10/27/22 1435 PATIENT NAME: MALISSA RESTREPOTHERESA NORMAN OPERATIVE REPORT DATE OF : 62 REPORT #: [id number] PHYSICIAN: AYESHA STUBBS MD PCP: BARB ISIDRO REPORT IS CONFIDENTIAL AND NOT TO BE RELEASED WITHOUT AUTHORIZATION
--- NOTE | 2022-10-29 15:13 | PATH ---
[facility] [address] [place], [place] [address] Signed SPECIMEN(S): A CECUM COLON POLYP SPECIMEN SOURCE: A. CECUM COLON POLYP CLINICAL HISTORY: Pre: Surveillance colonoscopy, 0 report from initial screening. Post: Diverticulosis and cecal polyp x 1. FINAL PATHOLOGIC DIAGNOSIS: Cecum colon polyp: - Serrated polyp / adenoma (one fragment). JVR:[facility] MICROSCOPIC EXAMINATION: Histologic sections of all submitted blocks are examined by light microscopy. These findings, together with the gross examination, support the pathologic diagnosis. GROSS DESCRIPTION: The specimen, labeled and designated "Morning Owl, E, colon, cecum polypectomy," is received in formalin and consists of 7 barr-brown soft tissue fragments measuring 0.3 x 0.4 cm in greatest dimension. Specimens are submitted entirely in (A1). MMA (under the direct supervision of a pathologist) The Gross Description was prepared using a voice recognition system. The report was reviewed for accuracy; however, sound-alike word errors, addition and/or deletions may occur. If there is any question about this report, please contact Client Services. PERFORMING LABORATORY: Technical component was performed by [employer], [address] [place] [id number] (CLIA# [id number]). Professional interpretation was performed by [email or web address], [address] [place] [id number] (CLIA#: [id number]). Diagnostician: Ap Emanuel MD Pathologist Electronically Signed 10/29/2022 PATIENT NAME: THERESA RICHEY PATHOLOGY DATE OF : 62 REPORT #: [id number] PHYSICIAN: [facility] PCP: MICKI ISIDRO REPORT IS CONFIDENTIAL AND NOT TO BE RELEASED WITHOUT AUTHORIZATION [address] [address] Signed Copies: ~ PATIENT NAME: THERESA RICHEY PATHOLOGY DATE OF : 62 REPORT #: [id number] PHYSICIAN: [facility] PCP: MICKI ISIDRO REPORT IS CONFIDENTIAL AND NOT TO BE RELEASED WITHOUT AUTHORIZATION
== END 2022-10-24 16:30 | disposition home or self-care (01) ==
LOC: OPS 12:52 → DS 12:52 → OPS 14:00
PROVIDERS: ATTEND Surgery
PROC: 0DBH8ZX Excision of Cecum, Via Natural or Artificial Opening Endoscopic, Diagnostic (ICD-10-PCS; principal; 2022-10-24 14:00)
DX: Z12.11 Encounter for screening for malignant neoplasm of colon (principal); D12.0 Benign neoplasm of cecum; K57.30 Diverticulosis of large intestine without perforation or abscess without bleeding; I10 Essential (primary) hypertension; E11.9 Type 2 diabetes mellitus without complications; Z79.82 Long term (current) use of aspirin; Z79.899 Other long term (current) drug therapy
CPT/HCPCS: 99153; G0500; J2250; J3010; J7121